=== PATIENT | male | born 1965 | race Caucasian/White ===

== ENCOUNTER 2020-08-08 11:33 | Outpatient (CLI) | payer OTHER, SELFPAY ==
--- NOTE | 2020-08-08 11:44 | XR_ITS ---
WS: [id number] Exam: XR wrist RT min 3V* [id number] Date/Time of Exam: 08/08/2020 11:50 AM Reason For Exam: WRIST PAIN,RIGHT, FALL No acute fracture or dislocation. Articular relationships are intact. There are several small soft ti ssue calcifications seen along the dorsal margin of the triquetrum. This does not appear to represent a recent fracture. Mild soft tissue swelling over the dorsum of the wrist. Mild vascular calcificati ons along the volar aspect of the wrist. XR/XR wrist RT min 3V* [id number] IMPRESSION: 1. No acute fracture or dislocation.
== END 2020-08-08 11:34 | disposition home or self-care (01) ==
PROVIDERS: PCP Internal Medicine; Visit Provider Nurse Practitioner Family
DX: M25.531 Pain in right wrist (principal); W19.XXXA Unspecified fall, initial encounter
CPT/HCPCS: 73110

== ENCOUNTER 2021-01-27 10:18 | Outpatient (CLI) | payer OTHER, SELFPAY ==
--- NOTE | 2021-01-27 10:26 | XR_ITS ---
WS: [id number] CHEST 2 VIEWS HISTORY: COUGH COMPARISON: 07/14/2013 Lungs: Very minimal interstitial thickening at the lingula. Otherwise the lungs are clear. Mild hyper expansion. Normal vasculature. Cardiac size: Normal. Mediastinum/Aorta: Normal mediastinum. Bones: Anterior longitudinal ligament calcification. XR/XR chest 2V* [id number] IMPRESSION: Minimal subsegmental pneumonitis at the lingula.
== END 2021-01-27 10:19 | disposition home or self-care (01) ==
LOC: RADWPI 10:22
PROVIDERS: PCP Internal Medicine; Visit Provider Internal Medicine
DX: R05 Cough (principal)
CPT/HCPCS: 71046

== ENCOUNTER 2021-02-16 11:22 | Outpatient (CLI) | payer OTHER, SELFPAY ==
--- NOTE | 2021-02-16 11:26 | XR_ITS ---
WS: [id number] PROCEDURE: XR chest 2V* [id number] CLINICAL INFORMATION: COUGH COMPARISON: January 27, 2021 FINDINGS: Heart: Normal cardiac silhouette. Lungs: Moderate chronic emphysematous changes. No acute pulmonary infiltrates. Slight subsegmental at electasis/fibrosis left lower lobe is unchanged. Bones: Hypertrophic changes thoracic spine. XR/XR chest 2V* [id number] IMPRESSION: 1. Moderate chronic emphysematous changes. 2. Slight subsegmental atelectasis or fibrosis left lower lobe is unchanged. 3. No acute pulmonary infiltrates.
== END 2021-02-16 11:23 | disposition home or self-care (01) ==
PROVIDERS: PCP Internal Medicine; Visit Provider Internal Medicine
DX: R05 Cough (principal)
CPT/HCPCS: 71046

== ENCOUNTER 2025-01-13 00:13 | Emergency (ER) | payer OTHER, SELFPAY ==
--- OUTSIDE RECORDS SUMMARY | 2025-01-13 00:21 | XMS_ITS | Clinical Summary ---
Author Organization [facility] Facility Address [address] [address] Care Team Providers Care Chief Radiation Therapist Name Role Phone Yolanda Nettles MD Primary Care Provider [phone] Allergies Active Allergy Reactions Criticality Noted Date Comments Sertraline Medium 12/02/2023 Medications lisinopril 40 MG tablet Take 40 mg by mouth 1 (one) time each day Active omeprazole (PriLOSEC) [address] capsule Take 40 mg by mouth 1 (one) time each day Do not crush or chew. Active allopurinol (ZYLOPRIM) 100 MG tablet Take 200 mg by mouth in the morning and 200 mg in the evening. Active amLODIPine (NORVASC) 5 MG tablet Take 5 mg by mouth 1 (one) time each day Active metFORMIN (GLUCOPHAGE) 500 MG tablet Take 500 mg by mouth Active potassium chloride 10 MEQ CR tablet Take 10 mEq by mouth 1 (one) time each day Do not crush, chew, or split. Active albuterol HFA (PROVENTIL HFA;VENTOLIN HFA) 108 (90 Base) MCG/ACT inhaler Inhale 2 puffs every 6 (six) hours if needed 03/02/2024 Active Empagliflozin 25 MG tabletIndicatio ns:Chronic kidney disease stage 2,Proteinuria, not otherwise specified Take 25 mg by mouth 1 (one) time each day in the morning 30 tablet 5 10/15/2024 Active Active Problems No known active problems Family History Medical History Relation Comments Lung cancer Father Breast cancer Mother Diabetes Mother Stroke Mother Thyroid disease Mother Relation Status Comments Father Mother Social History Tobacco Use Types Packs/Day Years Used Date Smoking Tobacco: Former Cigarettes Q uit: 2010 Smokeless Tobacco: Never Tobacco Cessation:Counseling Given: Not Answered Alcohol Use Standard Drinks/Week Comments Yes 0 (1 standard drink = 0.6 oz pur e alcohol) 4 pluse a day mixed drinks Sex and Gender Information Value Date Recorded Sex Assigned at Not on file Legal Sex Male 10:55 AM EDT Gender Identity Not on file Sexual Orientation Not on file Last Filed Vital Signs Vital Sign Reading Time Taken Comments Blood Pressure 134/64 10/06/2024 1:45 PM CDT Pulse 88 10/06/2024 1:30 PM CDT Temperature - - Respiratory Rate - - Oxygen Saturation 98% 12/05/2023 1:10 PM CDT Inhaled Oxygen Concentration - - Weight 100 kg (220 lb 9.6 oz) 10/06/2024 1:30 PM CDT Height 180.3 cm (5' 11 ) 10/06/2024 1:30 PM CDT Body Mass Index 30.77 10/06/2024 1:30 PM CDT Plan of Treatment Upcoming Encounters Date Type Department Care Team (Late st Contact Info) Description 04/13/2025 2:00 PM PRACTICE MANAGERS Office Visit [facility], [facility] [address] [place] [address] Tonya Sims NP [address] [address] Health Maintenance Due Date Last Done Comments Hepatitis B Vaccine (1 of 3 - 19+ 3-dose series) 03/13 Pneumococcal Vaccine: 50+ Years (1 of 2 - PCV) 984 Colorectal Cancer Screening: Annual FOBT 2014 Colorectal Cancer Screening: Colonoscopy 2014 Colorectal Cancer Screening: Sigmoidoscopy 2014 Diabetes: Ophthalmology Exam 12/05/2023 Diabetes: Pedal Pulse Checked 12/05/2023 Diabetes: Sensory Foot Exam 12/05/2023 Diabetes: Visual Foot Exam 12/05/2023 Diabetes: Hemoglobin A1C 06/18/2024 03/18/2024 Influenza Vaccine (#1) 2025 Procedures Procedure Name Priority Date/Time Associated Diagnosis Comments HEMOGLOBIN A1C (EXTERNAL RESULT ENTRY) Routine 03/18/2024 from Last 3 Months or Most Recently Relevant to Health Maintenance Results * Hemoglobin A1C (03/18/2024) Hemoglobin A1C 5.8 Blood specimen (specimen) Venous blood / Unknown 03/18/2024 us Yolanda Nettles MD LAB BLOOD ORDERABLES Final Resul t from Last 3 Months or Most Recently Relevant to Health Maintenance Insurance [facility] Care Teams Chief Radiation Therapist Relationship Specialty Start Date End Date Yolanda Nettles MD [address] [place] [id number] PCP - General Internal Medicine 09/09/23
--- OUTSIDE RECORDS SUMMARY | 2025-01-13 00:21 | XMS_ITS | Encounter Summary ---
Author Organization [facility] [employer], [facility] Address [address] [place] [address] Phone Care Team Providers Care Experimental Preflight Mechanic Name Role Phone Yolanda Nettles MD Primary Care Provider [phone] Encounter Details Date Type Department Care Team (Late st Contact Info) Description 09/10/2023 Orders Only [facility] [employer] [address] [place] [address] Nephrotic range proteinuria Social History Tobacco Use Types Packs/Day Years Used Date Smoking Tobacco: Never Assessed Sex and Gender Information Value Date Recorded Sex Assigned at Not on file Legal Sex Male 10:55 AM EDT Gender Identity Not on file Sexual Orientation Not on file documented as of this encounter Plan of Treatment Upcoming Encounters Date Type Department Care Team (Late st Contact Info) Description 04/13/2025 2:00 PM FLIGHT OPERATIONS COORDINATOR Office Visit [facility] [employer], [facility] [address] [place] [address] Tonya Sims NP [address] [place] [address] documented as of this encounter Visit Diagnoses Diagnosis Nephrotic range proteinuria documented in this encounter Care Teams Experimental Preflight Mechanic Relationship Specialty Start Date End Date Yolanda Nettles MD [address] [place] [id number] PCP - General Internal Medicine 09/09/23 documented as of this encounter
[2025-01-13 00:29] VITALS: BP 173/100; PULSE 82; RESP 16; TEMP 36.9; O2SAT 99; BMI 31.6
[2025-01-13 01:25] VITALS: BP 181/108; PULSE 77; O2SAT 97
[2025-01-13 01:39] VITALS: BP 181/108; PULSE 87; O2SAT 97
--- NOTE | 2025-01-13 05:23 | W.ED.ANIMALB ---
HPI - Animal Bite General: Chief Complaint: Animal Bite Stated Complaint: Bitten By Raccoon Time Seen by Provider: 01/13/25 01:03 History of Present Illness: Danyel Mahoney is a 59-yo M who presents after a superficial bite to the right thumb from a mother raccoon last night while hand-feeding basiliolows. Scratch produced minimal bleeding and has slight redness only. Pt has fed this family of raccoons nightly for weeks and notes they continue to act normally. After reporting the incident to his PCP, the health department repeatedly recommended immediate rabies post-exposure vaccination; pt seeks ED opinion on necessity. Pt prefers not to euthanize or test the animal and plans to continue nightly observation of the mother raccoon. Denies fever, chills, swelling, purulence, numbness, weakness, SOB, chest pain, or other bites. Related Data Previous Rx's ?Medication ?Instructions ?Recorded amoxicillin 875 mg-potassium 1 tab PO Q12H #10 tabs 01/13/25 clavulanate 125 mg tablet Allergies Allergy/AdvReac Type Severity Reaction Status Date / Time No Known Allergies Allergy Verified 01/13/25 00:31 Physical Exam Const: COMMON NORMALS: no acute distress, patient oriented x3 and alert HENMT: COMMON NORMALS: normocephalic and atraumatic HEAD & SCALP: normocephalic and atraumatic Eye: COMMON NORMALS: Equal, round and reactive pupils present, EOMs intact bilaterally and no scleral icterus PUPIL: Yes Equal, round and reactive pupils present Resp: COMMON NORMALS: normal respiratory effort and No retractions Cardio: COMMON NORMALS: regular rate, regular rhythm and No murmurs present (Cardio) RATE: regular rate RHYTHM: regular rhythm GI: COMMON NORMALS: Normal to inspection, nondistended, normoactive bowel sounds present, Soft to palpation and non-tender PALPATION: Yes Soft to palpation Neuro: COMMON NORMALS: patient oriented x3 SENSORIUM/ORIENTATION: Yes alert Skin: NARRATIVE SKIN EXAM: Superficial scrape adjacent to right thumbnail; no erythema, warmth, or purulence; [id number]; no sutures required. Course Vital Signs: Vital signs: Vital Signs Temperature 98.5 F 01/13/25 00:29 Pulse Rate 87 01/13/25 01:39 Respiratory Rate 16 01/13/25 00:29 Blood Pressure 181/108 01/13/25 01:39 Pulse Oximetry 97 01/13/25 01:39 Oxygen Delivery Me thod Room Air 01/13/25 01:25 MDM - Animal Bite Medical Decision Making Pt with minor right thumb scrape after raccoon bite seeks guidance on rabies PEP; incident occurred <24 h ago, animal acts normally and is observable nightly. Rabies exposure considered; low risk assessed given normal animal behavior and capability for 10-day observation. Bacterial infection risk from mammalian oral jass addressed. Plan: Shared decision to defer rabies PEP for now; pt to monitor raccoon for 10 days and return immediately if animal appears ill or pt develops symptoms. Five-day course of Augmentin called to [facility] pharmacy for bite prophylaxis. No radiology studies performed this visit Discharge Plan Discharge Patient Disposition: Home Clinical Impression: Bitten by corby, initial encounter Condition: Stable Prescriptions: New amoxicillin-pot clavulanate 875-125 mg tablet 1 tab PO Q12H Qty: 10 0RF Discharge Orders: Discharge ED (Routine); Ordered 01/13/25 Ordered By: Elmer Mcarthur Referrals: Yolanda Nettles MD [Primary Care Provider, Internal Medicine] Discharge Diet: Usual diet Discharge Activity: Resume usual activity Patient Instructions: Animal Bites - Adult, Patient Portal & Anjel Instructions Activity Restrictions/Additional Instructions: As we discussed, your exposure seems to be low risk as the animal is acting normally. As long as you are able to observe the animal for the next 2 weeks and it does not show worrisome signs or changes in behavior, your risk of rabies remains extremely low. Please take the prescribed antibiotics to avoid bacterial infection and know that you are always welcome back in the emergency department if you choose to pursue rabies prophylaxis shots. Print Language: Ecuadorean Coding Level of Care Code ED [employer]inct [employer] Police Sergeant for Mikel Gonzalez
== END 2025-01-13 01:42 | disposition home or self-care (01) ==
PROVIDERS: Emergency Provider Student in an Organized Health Care Education/Training Program; PCP Internal Medicine
DX: S61.051A Open bite of right thumb without damage to nail, initial encounter (principal); W55.51XA Bitten by raccoon, initial encounter
CPT/HCPCS: 99283